=== PATIENT | male | born 1965 | race Caucasian/White ===

== ENCOUNTER 2017-03-23 07:02 | Emergency (ER) | payer BC ==
[2017-03-23 07:24] VITALS: BP 135/84
--- NOTE | 2017-03-23 07:55 | UC ---
Pineda Ann Gabriel, scribed for Christina Medina MD on 03/23/17 at 0719 . Dizzy HPI HPI Summary: This patient is a 51 year old M presenting to [facility] accompanied by his with a chief complaint of dizziness since awakening approx 0600 on 03/21/17 . He describes it as the room being slanted, rather than spinning with general uneasy ambulating. Symptoms seeem aggravated by position change and shifting his vision rapidly. Spouse - unsure if worse or new word finding / confusion. Hx of cva L vert in spring, since then juli when stressed or tired has - as expected - periodic exacerbation of sx. Mr. Levin specifially denies DAVIS, incontinence, palpations, decreased appetit. The patient states he fell once on when trying to get out of bed, no LOC. He reports the dizziness being similar to his last CVA which occurred on 05/12. He is able to read yesterday (stayed home, and mostly in bd) nd follow the plot , denies sleep disturbance. Patient was able to self ambulate into the room upon arrival. Denies recent injury / illness. Nonsmoker (very remote hx). No recent fever / chills, cough / cold. - History Of Current Complaint Stated Complaint: DIZZY Time Seen by Provider: 03/23/17 07:04 Hx Obtained From: Patient, Family/Acting Professor Onset/Duration: Lasting Days - 3, Still Present Timing: Constant Severity Initially: Moderate Severity Currently: Moderate Character: Dizzy - Allergies/Home Medications Allergies/Adverse Reactions: Allergies Allergy/AdvReac Type Severity Reaction Status Date / Time No Known Allergies Allergy Verified 12/28/15 10:25 PMH/Surg Hx/FS Hx/Imm Hx Previously Healthy: No - healthy with exception of hpi Endocrine History: Other - denies dm Other Endocrine History: see above Cardiovascular History: Hypertension Other Cardiovascular History: HLD Respiratory History: Other - sleep apnea, wears nightly cpap Other Respiratory History: see above Neurological History: CVA Other History Of: Anticoagulant Therapy - Aspirin. Negative For: HIV, Hepatitis B, Hepatitis C - Surgical History Surgical History: Yes Surgery Procedure, Year, and Place: ORIF right ankle. [place]; left knee cartilage removed - Family History Known Family History: Positive: Cardiac Disease, Hypertension, Other - CVA - mom dec copd issues - dad dec Negative: Diabetes - Social History Occupation: Employed Full-time Lives: With Family Alcohol Use: Occasionally Substance Use Type: None Substance Use Comment - Amount & Last Used: xanax prn and ativan prn Smoking Status (MU): Never Smoked Tobacco - Immunization History Most Recent Tetanus Shot: 08/30/15 Review of Systems Constitutional: Negative Skin: Negative Eyes: Negative ENT: Other - see hpi Respiratory: Negative Cardiovascular: Negative Gastrointestinal: Negative Genitourinary: Negative Motor: Other - see hpi Neurovascular: Other - see hpi Musculoskeletal: Other: - see hpi Neurological: Other - see hpi Psychological: Negative Is Patient Immunocompromised?: No All Other Systems Reviewed And Are Negative: Yes Physical Exam Triage Information Reviewed: Yes Appearance: Well-Appearing, Well-Nourished Vital Signs: Initial Vital Signs Temp 97.6 F 03/23/17 07:09 Pulse 69 03/23/17 07:09 Resp 18 03/23/17 07:09 BP 135/84 03/23/17 07:09 Pulse Ox 98 03/23/17 07:09 Vital Signs Reviewed: Yes Eyes: Positive: Other: - Slight horizontal nystagmus (r < l) . PERRLA EOMI gross vis camargo ok (1 and 2 finger) ENT Exam: Normal ENT: Positive: Pharynx normal Neck exam: Normal Neck: Positive: Supple, Nontender, Other: - no carotid bruits appreciated. Respiratory Exam: Normal - no dyspnea, no tachypnea, normal respiratory rate, Chest non-tender, Lungs clear, Normal breath sounds, No respiratory distress, No accessory muscle use Respiratory: Positive: Chest non-tender, Lungs clear, Normal breath sounds, No respiratory distress Cardiovascular Exam: Normal - Heart rate regular, good general skin color, good capillary refill, RRR, No Murmur Cardiovascular: Positive: RRR, No Murmur, Pulses Normal, Brisk Capillary Refill Abdominal Exam: Normal - Nontender, No Organomegaly, Soft Abdomen Description: Positive: Nontender Bowel Sounds: Positive: Present Musculoskeletal Exam: Normal Musculoskeletal: Positive: Strength Intact - moves x 4 ext's. Able to stand. See neuro below. Neurological Exam: Normal Neurological: Positive: Other: - CN 1 - 12 grossly intact, incl + CN 1 + sens alcohol swab. No diplopia. DTR's 1-2+ equal P / BR / R Moves all ext's. Distal sens LT present x 4 ext's Denies B/B issues (no leak). Sharpened romberg , right 2 seconds, left 5 seconds, unsteady. Heel to toe forward and back with eyes open, challenging. (max approx 3 ft). Ax N sens Bilt + present. Psychological Exam: Normal - conversing easily and appropriately some word finding difficulty, however, unsure if this is unusual. Skin Exam: Normal, Other - no visible or reported rash Dizzy Course/Dx - Course Course Of Treatment: EKG - NSR at 65 bmp 65bpm. BG 105mg / dl. D/w pt and his . Recommend ED transfer via EMS, understandably he is disappointed, but expressed understanding and agreement. Took 325mg po aspirin late last evening (takes every night), as such, not given this am. Spoke with Dr. London ED, via telephone, 07:28am. EMS notified 07:22am. - Differential Dx/Diagnosis Provider Diagnoses: Dizziness , unsteadiness x approx 49 hrs. Hx L vertebral dissection spring 2013. Discharge - Discharge Plan Condition: Guarded Disposition: TRANS HIGHER LVL OF CARE FAC Referrals: Jared Rabago MD [Primary Care Provider] - The documentation as recorded by the Pineda calzada Gabriel accurately reflects the service I personally performed and the decisions made by me, Christina Medina MD.
== END 2017-03-23 07:48 | disposition short-term general hospital (02) ==
LOC: UCEAST 07:02
DX: R42 Dizziness and giddiness (principal); R26.81 Unsteadiness on feet; I10 Essential (primary) hypertension; E78.5 Hyperlipidemia, unspecified
CPT/HCPCS: 93005; 99213; G0463

== ENCOUNTER 2017-03-23 08:03 | Observation (INO) | payer BC ==
[2017-03-23 08:20] LABS: ABS Basophils 0 10^3/ul (0-0.2); ABS Eosinophils 0.2 10^3/ul (0-0.6); ABS Lymphocytes 1.3 10^3/ul (1.0-4.8); ABS Monocytes 0.4 10^3/ul (0-0.8); ABS Neutrophils 3.7 10^3/ul (1.5-7.7); ABS Nucleated RBC 0 10^3/ul; Eosinophil % 2.8 % (0-6); Hematocrit 43 % (42-52); Hemoglobin 14.4 g/dl (14.0-18.0); Mean Corpuscular HGB Conc 34 g/dl (31-36); Mean Corpuscular Hemoglobin 30 pg (27-31); Mean Corpuscular Volume 89 fL (80-94); Mean Platelet Volume 9 um3 (7.4-10.4); Nucleated Red Blood Cells % 0; Platelet Count 165 10^3/ul (150-450); Red Blood Count 4.81 10^6/ul (4.0-5.4); Red Cell Distribution Width 13 % (10.5-15); White Blood Count 5.7 10^3/ul (3.5-10.8)
[2017-03-23 08:35] LABS: EGFR Non-African American 82.3 (>60)
--- NOTE | 2017-03-23 08:43 | RAD ---
HISTORY: Dizziness COMPARISONS: November 23, 2013 TECHNIQUE: Multiple contiguous axial CT scans were obtained of the head without intravenous contrast. FINDINGS: HEMORRHAGE/INFARCT: There is no hemorrhage or acute infarct. MASSES/SHIFT: There is no mass or shift. EXTRA-AXIAL SPACES: There are no extra-axial fluid collections. SULCI AND VENTRICLES: The sulci and ventricles are normal in size and position for the patient's stated age. CEREBRUM: There are no focal parenchymal abnormalities. BRAINSTEM: There are no focal parenchymal abnormalities. CEREBELLUM: There are no focal parenchymal abnormalities. VESSELS: The vessels are grossly normal. PARANASAL SINUSES: The paranasal sinuses are clear. ORBITS: The orbits are unremarkable. BONES AND SOFT TISSUE: No bone or soft tissue abnormalities are noted. OTHER: None IMPRESSION: NO ACUTE INTRACRANIAL PATHOLOGY.
--- NOTE | 2017-03-23 08:45 | RAD ---
Indication: Dizziness. Comparison: November 23, 2013 chest radiograph and August 24, 2008 CT. Technique: Sitting AP chest 0836 hours. Report: Clear lungs and pleural spaces. Negative for pneumothorax. The heart, pulmonary vasculature, and mediastinal contours are unremarkable. Unremarkable osseous structures and soft tissue contours. IMPRESSION: No evidence for acute intrathoracic disease.
[2017-03-23 08:50] LABS: Urine Appearance Clear; Urine Blood Negative (Negative); Urine Color Colorless; Urine Ketones Negative (Negative); Urine Protein Negative (Negative); Urine Specific Gravity 1.002 (1.010-1.030); Urine Urobilinogen Negative (Negative)
[2017-03-23] MEDS ORDERED: Iohexol 350* (CONTRAST) 500 ML MDV IV ONE (09:16)
--- NOTE | 2017-03-23 10:06 | RAD ---
HISTORY: Dizziness and unsteady gait COMPARISONS: November 23, 2013 TECHNIQUE: Multiple contiguous axial CT scans were obtained of the head and neck After the administration of nonionic intravenous contrast timed to the systemic arterial phase of contrast enhancement. Coronal and sagittal multiplanar reformations are submitted for review. Multiple 3-D maximum intensity projection reconstructions are also submitted for review. FINDINGS: CTA NECK: AORTIC ARCH: There is a normal three-vessel branching pattern of the aortic arch. There is no ostial or proximal stenosis of the cephalic great vessels. RIGHT VERTEBRAL ARTERY: The right vertebral artery is patent along its course, without stenosis. LEFT VERTEBRAL ARTERY: Again noted is multifocal high-grade stenosis of the T1 and proximal V2 segments of the left vertebral artery. This has progressed when compared to the November 23, 2013 examination. There is distal reconstitution of the V2 segment of the left vertebral artery. DOMINANCE: The right vertebral artery is dominant. RIGHT COMMON CAROTID ARTERY: The right common carotid artery is patent. The right carotid bifurcation occurs at C4-C5 RIGHT INTERNAL CAROTID ARTERY: There is no right internal carotid artery stenosis by NASCET criteria. RIGHT EXTERNAL CAROTID ARTERY: The right external carotid artery is unremarkable. LEFT COMMON CAROTID ARTERY: The left common carotid artery is patent. The left carotid bifurcation occurs at C4 LEFT INTERNAL CAROTID ARTERY: There is mild atheromatous disease of the left carotid bifurcation, without left internal carotid artery stenosis by NASCET criteria. LEFT EXTERNAL CAROTID ARTERY: The left external carotid artery is unremarkable. VENOUS CIRCULATION: The venous system is unremarkable. SALIVARY GLANDS: The parotid glands, submandibular glands, sublingual glands are normal. NASAL CAVITY/NASOPHARYNX: The nasal cavity and nasopharynx are normal. ORAL CAVITY/OROPHARYNX: The oral cavity is obscured by streak artifact from dental amalgam. The visualized oral cavity and oropharynx are unremarkable. LARYNGEAL APPARATUS/HYPOPHARYNX: The laryngeal apparatus and hypopharynx are normal. UPPER AIRWAY/UPPER ESOPHAGUS: The visualized upper airway and esophagus are normal. LUNG APICES: The lung apices are clear. THYROID GLAND: The thyroid gland is normal. LYMPH NODES: There is no lymphadenopathy by size criteria. BONES AND SOFT TISSUES: No bone or soft tissue abnormalities are noted. CTA HEAD: INTRACRANIAL CIRCULATION: There is no aneurysm, vascular malformation, occlusion, or stenosis of the visualized intracranial circulation. The anterior communicating artery complex is clear. Bilateral posterior communicating arteries are identified. VENOUS CIRCULATION: The venous system is unremarkable. PERFUSION: There is no obvious parenchymal perfusion deficit. HEMORRHAGE/INFARCT: There is no hemorrhage or acute infarct. MASSES/SHIFT: There is no mass or shift. EXTRA-AXIAL SPACES: There are no extra-axial fluid collections. SULCI AND VENTRICLES: The sulci and ventricles are normal in size and position for the patient's stated age. CEREBRUM: There are no focal parenchymal abnormalities. BRAINSTEM: There are no focal parenchymal abnormalities. CEREBELLUM: There are no focal parenchymal abnormalities. PARANASAL SINUSES: The paranasal sinuses are clear. ORBITS: The orbits are unremarkable. BONES AND SOFT TISSUE: No bone or soft tissue abnormalities are noted. OTHER: There is no abnormal enhancement. IMPRESSION: 1. THERE HAS BEEN INTERVAL PROGRESSION OF THE MULTIFOCAL STENOSIS OF THE PROXIMAL LEFT VERTEBRAL ARTERY. THE DISTAL LEFT VERTEBRAL ARTERY IS RECONSTITUTED PRESUMABLY BY RETROGRADE OR COLLATERAL FLOW. 2. NO INTERNAL CAROTID ARTERY STENOSIS BY NASCET CRITERIA. 3. NO ANEURYSM, VASCULAR MALFORMATION, OCCLUSION, OR STENOSIS OF THE VISUALIZED INTRACRANIAL CIRCULATION. CPT II Codes: 3100F
[2017-03-23] MEDS ORDERED: Albuterol HFA INHALER* 8 gm MDI INH PRN (12:20)
[2017-03-23] MEDS ORDERED: NS 0.9% 500 ML* 500 ML IV ONE (13:59)
--- NOTE | 2017-03-23 15:39 | RAD ---
HISTORY: Stroke, dizziness COMPARISONS: Head CT dated March 23, 2017 TECHNIQUE: The following sequences were obtained of the head: Sagittal T1-weighted images, axial T2-weighted images, axial FLAIR images, axial susceptibility weighted images, axial T1-weighted images. Additionally, axial diffusion-weighted images were obtained with calculated apparent diffusion coefficients. FINDINGS: HEMORRHAGE/INFARCT: There is no hemorrhage or acute infarct. MASSES/SHIFT: There is no mass or shift. EXTRA-AXIAL SPACES/MENINGES: There are no extra-axial fluid collections. SULCI AND VENTRICLES: The sulci and ventricles are normal in size and position for the patient's stated age. CEREBRUM: There are several, scattered small foci of elevated T2/FLAIR signal within the periventricular and subcortical white matter. BRAINSTEM: There are no focal parenchymal abnormalities. CEREBELLUM: There are no focal parenchymal abnormalities. The cerebellar tonsils are normal in size and position. SELLA: The sella is normal. PINEAL: The pineal region is clear. CP ANGLE/TEMPORAL BONES: The labyrinthine structures are grossly normal. VESSELS: Normal flow-voids are noted within the visualized vertebral vasculature. DIFFUSION ABNORMALITIES: There are no diffusion abnormalities. PARANASAL SINUSES/MASTOIDS: The paranasal sinuses are clear. ORBITS: The orbits are unremarkable. BONES AND SOFT TISSUE: No bone or soft tissue abnormalities are noted. OTHER: None IMPRESSION: 1. THERE ARE SEVERAL, SCATTERED, SMALL FOCI OF ELEVATED T2/FLAIR SIGNAL WITHIN THE PERIVENTRICULAR AND SUBCORTICAL WHITE MATTER. WHILE THESE FINDINGS ARE NONSPECIFIC, THEY CAN BE SEEN IN ASSOCIATION WITH MIGRAINE HEADACHE, THE SEQUELA OF PREVIOUS INFECTION OR INFLAMMATION, AND CHRONIC SMALL VESSEL ISCHEMIA. DEMYELINATING DISEASE IS ALSO WITHIN THE DIFFERENTIAL, BUT IS CONSIDERED LESS LIKELY IN THE ABSENCE OF THE APPROPRIATE CLINICAL PRESENTATION. 2. NO RESTRICTED DIFFUSION TO SUGGEST ACUTE INFARCT.
[2017-03-23] MEDS: Acetaminophen TAB* 325 MG PO PRN (17:04)
[2017-03-23] MEDS ORDERED: Atorvastatin* 80 MG TAB PO SCH (21:00)
--- NOTE | 2017-03-23 21:06 | CONS ---
ADDENDUM NOW INCLUDED ON THIS REPORT CONSULTATION REPORT: DATE OF CONSULTATION: 03/23/17 PATIENT OF: Dr. London and Dr. Rabago. HISTORY OF PRESENT ILLNESS: This is a 51-year-old man who has had prior stroke in 2013 and comes in with history of dizziness and altered gait since Wednesday. There has been no worsening today, but he comes in because of persistence of symptoms. Of note, these symptoms are similar to the dizziness he had back in 2013. In 2013, he had a vertebral dissection of his left basilar artery and was on anticoagulation and was treated in [place]. He was left with some right- sided symptoms with slight weakness in his arm and leg. His walking is normal, but he cannot run and if he walks more than a half mile his right leg begins to drag. He has decreased fine motor skills in terms of his handwriting when he gets tired or sick, he will slur his speech from time to time. Now, he has had problems walking any distance. On Wednesday, he initially became lightheaded and fell but he has not fallen since, but he has been more careful. He feels if anything the unsteadiness since Wednesday is perhaps a little bit better, but not appreciably. There has been no visual symptoms, no headache, no weakness, no numbness, it is more of a coordination issue. The patient has hypertension and elevated cholesterol and is on aspirin 325 at home, Lipitor 80 mg at bedtime, Prinivil 5 mg daily. He has no known allergies. He was seen by the neurologist , Dr. Zapata in October 2013 and the note describes possible right-sided weakness and he had had a recent left vertebral dissection at that point. He has had some right-sided numbness at that point with some speech problems. He was thought not to have a new stroke by the doctor and apparently no change in therapy at that point. He has also a history of asthma and obstructive sleep apnea in addition to his hypertension and dyslipidemia. ALLERGIES: He has no known allergies. SOCIAL HISTORY: He does not smoke or drink and of note both parents have had stroke. REVIEW OF SYSTEMS: Negative in all 14 spheres other than the HPI. PHYSICAL EXAMINATION: On exam, temperature is 98.3, pulse 65, respirations 15, blood pressure 124/84, he was alert and oriented with normal speech and comprehension. Cranial nerves II through XII are intact. I did not detect any nystagmus. He has minor past pointing in both right and left hands. Apparently , this is subtle and apparently it is only his left hand in the past, he has a negative pronator drift. Strength was 5/5 in arms and legs, tone was normal. Walking, he tended to lock his left knee and had some inclination in his right side, his walking was somewhat unsteady and he needed one person assist to help steady himself. His Romberg was negative. His walking was a clear-cut change from prior to Wednesday. He had no numbness to light touch or pin. Reflexes were 2 and equal. Downgoing toes. Neck was supple. Chest clear. Cardiovascular: Regular rate and rhythm. Abdomen: Soft with positive bowel sounds. DIAGNOSTIC STUDIES/LAB DATA: His CT was reviewed and was normal. His CTA was reviewed and did show left vertebral disease and was thought by Dr. Medina to have an interval progression from his multifocal stenosis of his proximal left vertebral artery with the distal left vertebral artery reconstituted presumably by retrograde collateral flow. His prior CTA in October 2013 done locally, which was that of his first CTA showed a diminutive right vertebrobasilar and occluded proximal segment of his left vertebrobasilar to include normal CBC. Chemistries show normal CMP, BMP, C-reactive protein. Glucose is 102. His LDL not fasting was 83. TSH 2.8. Negative UA. Negative alcohol. 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 We will be checking an MRI scan and I most likely will be increasing his antithrombotics to aspirin and Plavix. His blood pressure is normal, but he possibly could be a little bit dehydrated and having the ER doctor give a small bolus of fluid. He was a little bit lightheaded, but he stood up in addition to feeling mild room spinning. I am concerned given his progressive vertebrobasilar disease and his basilar symptoms, basilar insufficiency that he is at risk for major posterior circulation stroke. I think especially since he has been stable for the past few days' time, they will not want to do any endovascular intervention and that we would most likely not place an anticoagulation, but I will double check these things with him. Thank you for sharing his case. ADDENDUM: I spoke to Dr. Crouch from [place] who reviewed the CTA and CT and was not sure whether there would be any use for a digital subtraction angiography within the next day or two and wanted me to speak to the vascular neurosurgeon, I did. He also reviewed the CTA and CT and discussed the case with him and I told him the results of the MRI scan which has just been completed, but it had not been yet loaded on to their system. He felt that the patient needed a digital subtraction angiography for better clarification of the vascular anatomy , but there would be no acute interventional procedures needed in the near future and that the DSA could be done as an outpatient basis either at [place] or at [place]. The patient is being admitted for observation at this point. I have spoken to Dr. Regalado. I discussed the case with the family after I spoke to Dr. Crouch, but before I spoke to Dr. Faye. [id number] #: [id number] #: [id number] BATSHEVA
--- NOTE | 2017-03-23 21:48 | HP ---
CC: Dr. Rabago; Dr. Duvall; Dr. Simpson from [facility] in [place], [place] * HISTORY AND PHYSICAL: DATE OF ADMISSION: 03/23/17 PRIMARY CARE PROVIDER: Dr. Rabago. CHIEF COMPLAINT: Dizziness. 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 The patient stated that 3 days ago, he got up from bed and his gait was so unsteady that he fell down. Ever since then, he had been getting better and he is able to walk without major need of support for the past 24 hours. Nevertheless, due to his history of stroke, his brought him to the hospital for evaluation. So far, his workup is unremarkable apart from mild ataxia. The patient is going to be placed on overnight observation with a working diagnosis of ischemic CVA. PAST MEDICAL HISTORY: 1. History of asthma. 2. Dyslipidemia. 3. History of hypertension. 4. History of ORIF of the right ankle. 5. History of posterior circulation CVA in 2013 for which the patient was evaluated in the hospital in [place]. He stated that he had left vertebral artery dissection for which he was anticoagulated with Coumadin for several months afterwards. CURRENT MEDICATIONS: Includes: 1. Lisinopril 5 mg daily. 2. Atorvastatin 80 mg daily. 3. Aspirin 325 mg daily. 4. Albuterol inhaler on a p.r.n. basis. ALLERGIES: No known drug allergies. FAMILY HISTORY: Positive for father, who secondary to COPD complications in his 70s. Mother of secondary to stroke at the age of 46. SOCIAL HISTORY: The patient denies any tobacco, alcohol, or drug use. 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 He lives with his , who is his surrogate. REVIEW OF SYSTEMS: Please see history of present illness. In addition to the above mentioned, the patient stated he did not have headache, but he has had occasional neck pain which is not unusual for him. He denies any diplopia. He states that his dizziness, he feels like he would be on "a ship." It is definitely worse when he is moving. He has not had any problems of nausea and vomiting with it. All the remaining 12 systems were reviewed with the patient and were otherwise negative. PHYSICAL EXAMINATION GENERAL: The patient is a very pleasant 51-year-old male, who is in no acute distress. Alert, awake, and oriented x3. VITAL SIGNS: Blood pressure of 137/85, heart rate of 61 and regular, respiratory rate 16, oxygen saturation 97% on room air, temperature 97.6. HEENT: Head: Atraumatic, normocephalic. Eyes: Pupils are equal, reactive to light and accommodation. Oropharynx clear. Mucosa moist. NECK: Supple. No JVD. No bruits bilaterally. RESPIRATORY: Clear to auscultation bilaterally. CARDIOVASCULAR: Regular rate and rhythm. No murmur. ABDOMEN: Soft, nontender. Bowel sounds are present in all 4 quadrants. EXTREMITIES: There is no edema. Pulses are +2 bilaterally. No clubbing, cyanosis. NEUROLOGIC: Speech clear. Cranial nerves II through XII grossly intact. Motor strength is 5/5 bilaterally. The patient's [id number] is not dysmetric. Heel- to-alvarez is not dysmetric. The patient's gait is wide and unsteady. He has negative Romberg. PSYCHIATRIC EVALUATION: Oriented x3 with no evidence of anxiety or depression. SKIN: On evaluation of the skin, no ecchymotic areas or rashes noted. DIAGNOSTIC STUDIES/LAB DATA: Showed white blood cell count of 5.7, hemoglobin 14.4, hematocrit 43, and platelets 165. Sodium 136, potassium 4.4, chloride 105 , carbon dioxide 25, BUN 15, creatinine 0.96. C-reactive protein was below 1. Brain natriuretic peptide was 73. Urinalysis was unremarkable. CT angiogram of the head and neck, impression: "There has been interval progression of the multifocal stenosis of the proximal left vertebral artery. The distal left vertebral artery reconstituted presumably by retrograde all collateral flow. No interval carotid artery stenosis. No evidence of vascular malformation, occlusion or stenosis of the visualized intracranial circulation. " Chest x-ray was unremarkable. Brain CT showed, "no acute intracranial pathology." The patient's EKG showed normal sinus rhythm with a heart rate of 64 beats per minute with no ST changes. From review of medical records, the patient had a bubble study and echocardiogram performed in 2008, which was negative for PFO. ASSESSMENT AND PLAN: 1. In regards to the patient's dizziness. At this point, the differential includes posterior circulation stroke versus vertigo related more to inner ear pathology. At this point, the patient is going to be placed on overnight observation with neuro checks every 2 hours. Neurology network security consultant, Dr. Duvall will see the patient. An MRI was already recommended. I will also obtain transthoracic echocardiogram, although no need to get another bubble study since the patient's echocardiogram was negative several years ago. 2. Due to systolic blood pressures in the 130s, I will hold the patient's lisinopril to optimize his blood pressure. 2. In regards to the patient's dyslipidemia, his Lipitor is going to be continued. 3. For DVT prophylaxis, the patient is low risk and ambulation is going to be encouraged. TIME SPENT: Approximately 65 minutes was spent on admission of this patient, more than half of that time was spent [id number] with the patient doing the interview and physical exam. [id number] #: [id number] BATSHEVA
--- NOTE | 2017-03-23 21:56 | CONS ---
NEUROLOGICAL CONSULTATION: ADDENDUM: I spoke to Dr. Crouch from [place] who reviewed the CTA and CT and was not sure whether there would be any use for a digital subtraction angiography within the next day or two and wanted me to speak to the vascular neurosurgeon, I did. He also reviewed the CTA and CT and discussed the case with him and I told him the results of the MRI scan which has just been completed, but it had not been yet loaded on to their system. He felt that the patient needed a digital subtraction angiography for better clarification of the vascular anatomy, but there would be no acute interventional procedures needed in the near future and that the DSA could be done as an outpatient basis either at [place] or at [facility]. The patient is being admitted for observation at this point. I have spoken to Dr. Regalado. I discussed the case with the family after I spoke to Dr. Crouch, but before I spoke to . [id number] #: [id number] BATSHEVA
[2017-03-24] MEDS: Acetaminophen TAB* 325 MG PO PRN (07:42)
--- NOTE | 2017-03-24 07:58 | ED ---
Esdras Ann Angela, scribed for James London MD on 03/23/17 at 0844 . Neurological HPI - HPI Summary HPI Summary: This pt is a 51 y/o male presenting to [facility] c/o dizziness since 2 days ago ( 03/21/17). Pt describes his dizziness feels "like a head morales" and feeling of passing out, but not spinning. Pt has a history of left vertebral artery CVA in 2013, where he also felt dizzy. Pt was on anticoagulants for 3 months after his CVA, and then began to take aspirin everyday. Pt takes aspirin every evening, he last took one yesterday evening. He currently denies nausea, vomiting. PMHx: asthma, HTN, high cholesterol. - History of Current Complaint Chief Complaint: EDDizziness Stated Complaint: DIZZINESS Hx Obtained From: Patient Onset/Duration: Started days ago, Still Present Timing: Constant Current Severity: Moderate Pain Intensity: 3 Pain Scale Used: 0-10 Numeric Character: Lightheaded, Dizzy Aggravating: Nothing Alleviating: Nothing Associated Signs and Symptoms: Positive: Dizziness - Allergy/Home Medications Allergies/Adverse Reactions: Allergies Allergy/AdvReac Type Severity Reaction Status Date / Time No Known Allergies Allergy Verified 12/28/15 10:25 Home Medications: Home Medications Albuterol HFA INHALER* [Ventolin HFA Inhaler*] 2 puff INH Q4H PRN 03/23/17 [ History Confirmed 03/23/17] Lisinopril TAB* [Prinivil TAB*] 5 mg PO DAILY 03/23/17 [History Confirmed ] PMH/Surg Hx/FS Hx/Imm Hx Endocrine/Hematology History: Reports: Hx Anticoagulant Therapy - Aspirin. Denies: Hx Diabetes, Hx Thyroid Disease Cardiovascular History: Reports: Hx Hypertension Denies: Hx Congestive Heart Failure, Hx Deep Vein Thrombosis, Hx Myocardial Infarction, Hx Pacemaker/ICD Respiratory History: Reports: Hx Asthma Denies: Hx Chronic Obstructive Pulmonary Disease (COPD), Hx Lung Cancer, Hx Pneumonia, Hx Pulmonary Embolism GI History: Denies: Hx Gall Bladder Disease, Hx Gastrointestinal Bleed, Hx Ulcer, Hx Urosepsis History: Denies: Hx Kidney Stones, Hx Renal Disease Neurological History: Denies: Hx Dementia, Hx Migraine, Hx Seizures, Hx Transient Ischemic Attacks (TIA) Psychiatric History: Denies: Hx Anxiety, Hx Depression, Hx Schizophrenia, Hx Bipolar Disorder - Surgical History Surgery Procedure, Year, and Place: ORIF right ankle. [place]; left knee cartilage removed Infectious Disease History: No Infectious Disease History: Denies: Hx Clostridium Difficile, Hx Hepatitis, Hx Human Immunodeficiency Virus (HIV), Hx of Known/Suspected MRSA, Hx Shingles, Hx Tuberculosis, Hx Known/ Suspected VRE, Hx Known/Suspected VRSA, History Other Infectious Disease, Traveled Outside the [place] in Last 30 Days - Family History Known Family History: Positive: Cardiac Disease, Hypertension, Other - CVA - mom dec copd issues - dad dec Negative: Diabetes Family History: Mother: hemorrhagic CVA - Social History Alcohol Use: Occasionally Substance Use Type: Reports: None Substance Use Comment - Amount & Last Used: xanax prn and ativan prn Smoking Status (MU): Never Smoked Tobacco Review of Systems Negative: Fever, Chills Negative: Vomiting, Nausea Neurological: Other - POS: dizziness All Other Systems Reviewed And Are Negative: Yes Physical Exam - Summary Physical Exam Summary: VITAL SIGNS: Reviewed. GENERAL: Patient is a well-developed and nourished male who is lying comfortable in the stretcher. Patient is not in any acute respiratory distress. HEAD AND FACE: No signs of trauma. No ecchymosis, hematomas or skull depressions. No sinus tenderness. EYES: PERRLA, EOMI x 2, No injected conjunctiva, no nystagmus. No photophobia. EARS: Hearing grossly intact. Ear canals and tympanic membranes are within normal limits. MOUTH: Oropharynx within normal limits. NECK: Supple, trachea is midline, no adenopathy, no JVD, no carotid bruit, no c- spine tenderness, neck with full ROM. No meningeal signs, no Kernig's or brudzinskis signs. CHEST: Symmetric, no tenderness at palpation LUNGS: Clear to auscultation bilaterally. No wheezing or crackles. CVS: Regular rate and rhythm, S1 and S2 present, no murmurs or gallops appreciated. ABDOMEN: Soft, non-tender. No signs of distention. No rebound no guarding, and no masses palpated. Bowel sounds are normal. EXTREMITIES: FROM in all major joints, no edema, no cyanosis or clubbing. NEURO: Alert and oriented x 3. No acute neurological deficits. Speech is normal and follows commands. SKIN: Dry and warm GCS: 15 Triage Information Reviewed: Yes Vital Signs On Initial Exam: Initial Vitals Temp Pulse Resp BP Pulse Ox 98.3 F 72 16 156/91 97 03/23/17 08:09 03/23/17 08:09 03/23/17 08:09 03/23/17 08:09 03/23/17 08:09 Vital Signs Reviewed: Yes Diagnostics - Vital Signs Vital Signs Temp Pulse Resp BP Pulse Ox 03/23/17 08:09 98.3 F 72 16 156/91 97 - Laboratory Lab Results: Lab Results 03/23/17 03/23/17 03/23/17 Range/Units 07:36 07:36 07:36 WBC 5.7 (3.5-10.8) 10^3/ul RBC 4.81 (4.0-5.4) 10^6/ul Hgb 14.4 (14.0-18.0) g/dl Hct 43 (42-52) % MCV 89 (80-94) fL MCH 30 (27-31) pg MCHC 34 (31-36) g/dl RDW 13 (10.5-15) % Plt Count 165 (150-450) 10^3/ul MPV 9 (7.4-10.4) um3 Neut % (Auto) 65.9 (38-83) % Lymph % (Auto) 23.0 L (25-47) % [place] % (Auto) 7.6 (1-9) % Eos % (Auto) 2.8 (0-6) % Baso % (Auto) 0.7 (0-2) % Absolute Neuts (auto) 3.7 (1.5-7.7) 10^3/ul Absolute Lymphs (auto) 1.3 (1.0-4.8) 10^3/ul Absolute Monos (auto) 0.4 (0-0.8) 10^3/ul Absolute Eos (auto) 0.2 (0-0.6) 10^3/ul Absolute Basos (auto) 0 (0-0.2) 10^3/ul Absolute Nucleated RBC 0 10^3/ul Nucleated RBC % 0 Sodium 136 (133-145) mmol/L Potassium 4.4 (3.5-5.0) mmol/L Chloride 105 (101-111) mmol/L Carbon Dioxide 25 (22-32) mmol/L Anion Gap 6 (2-11) mmol/L BUN 16 (6-24) mg/dL Creatinine 0.96 (0.67-1.17) mg/dL Est GFR ( Amer) 105.8 (>60) Est GFR (Non-Af Amer) 82.3 (>60) BUN/Creatinine Ratio 16.7 (8-20) Glucose 102 H (70-100) mg/dL Calcium 9.5 (8.6-10.3) mg/dL Magnesium 2.1 (1.9-2.7) mg/dL Total Bilirubin 0.40 (0.2-1.0) mg/dL AST 19 (13-39) U/L ALT 18 (7-52) U/L Alkaline Phosphatase 70 (34-104) U/L Troponin I 0.00 (<0.04) ng/mL C-Reactive Protein < 1.00 (< 5.00) mg/L B-Natriuretic Peptide 73 ( - 100) pg/mL Total Protein 6.7 (6.4-8.9) g/dL Albumin 4.3 (3.2-5.2) g/dL Globulin 2.4 (2-4) g/dL Albumin/Globulin Ratio 1.8 (1-3) Triglycerides 103 mg/dL Cholesterol 133 mg/dL LDL Cholesterol 83 mg/dL HDL Cholesterol 29.3 mg/dL TSH 2.80 (0.34-5.60) mcIU/mL Urine Color Urine Appearance Urine pH (5-9) Ur Specific [place] (1.010-1.030) Urine Protein (Negative) Urine Ketones (Negative) Urine Blood (Negative) Urine Nitrate (Negative) Urine Bilirubin (Negative) Urine Urobilinogen (Negative) Ur Leukocyte Esterase (Negative) Urine Glucose (Negative) Serum Alcohol < 10 (<10) mg/dL 03/23/17 Range/Units 08:07 WBC (3.5-10.8) 10^3/ul RBC (4.0-5.4) 10^6/ul Hgb (14.0-18.0) g/dl Hct (42-52) % MCV (80-94) fL MCH (27-31) pg MCHC (31-36) g/dl RDW (10.5-15) % Plt Count (150-450) 10^3/ul MPV (7.4-10.4) um3 Neut % (Auto) (38-83) % Lymph % (Auto) (25-47) % [place] % (Auto) (1-9) % Eos % (Auto) (0-6) % Baso % (Auto) (0-2) % Absolute Neuts (auto) (1.5-7.7) 10^3/ul Absolute Lymphs (auto) (1.0-4.8) 10^3/ul Absolute Monos (auto) (0-0.8) 10^3/ul Absolute Eos (auto) (0-0.6) 10^3/ul Absolute Basos (auto) (0-0.2) 10^3/ul Absolute Nucleated RBC 10^3/ul Nucleated RBC % Sodium (133-145) mmol/L Potassium (3.5-5.0) mmol/L Chloride (101-111) mmol/L Carbon Dioxide (22-32) mmol/L Anion Gap (2-11) mmol/L BUN (6-24) mg/dL Creatinine (0.67-1.17) mg/dL Est GFR ( Amer) (>60) Est GFR (Non-Af Amer) (>60) BUN/Creatinine Ratio (8-20) Glucose (70-100) mg/dL Calcium (8.6-10.3) mg/dL Magnesium (1.9-2.7) mg/dL Total Bilirubin (0.2-1.0) mg/dL AST (13-39) U/L ALT (7-52) U/L Alkaline Phosphatase (34-104) U/L Troponin I (<0.04) ng/mL C-Reactive Protein (< 5.00) mg/L B-Natriuretic Peptide ( - 100) pg/mL Total Protein (6.4-8.9) g/dL Albumin (3.2-5.2) g/dL Globulin (2-4) g/dL Albumin/Globulin Ratio (1-3) Triglycerides mg/dL Cholesterol mg/dL LDL Cholesterol mg/dL HDL Cholesterol mg/dL TSH (0.34-5.60) mcIU/mL Urine Color Colorless Urine Appearance Clear Urine pH 6.0 (5-9) Ur Specific [place] 1.002 L (1.010-1.030) Urine Protein Negative (Negative) Urine Ketones Negative (Negative) Urine Blood Negative (Negative) Urine Nitrate Negative (Negative) Urine Bilirubin Negative (Negative) Urine Urobilinogen Negative (Negative) Ur Leukocyte Esterase Negative (Negative) Urine Glucose Negative (Negative) Serum Alcohol (<10) mg/dL Result Diagrams: 03/23/17 07:36 03/23/17 07:36 Lab Statement: Any lab studies that have been ordered have been reviewed, and results considered in the medical decision making process. - Radiology Chest XR Xray Interpretation: No Acute Changes - IMPRESSION: No evidence for acute intrathoracic disease. Dr. London has reviewed this radiology report. Radiology Interpretation Completed By: Radiologist - CT Brain CT CT Interpretation: No Acute Changes - IMPRESSION: No acute intracranial pathology. Dr. London has reviewed this radiology report. CT Interpretation Completed By: Radiologist CTA head/neck CT Interpretation: Positive (See Comments) - IMPRESSION: 1. There has been interval progression of the multifocal stenosis of the proximal left vertebral artery. The distal left vertebral artery is reconstituted presumably by retrograde or collateral flow. 2. No internal carotid artery stenosis by nascet criteria. 3. No aneurysm, vascular malformation, occlusion, or stenosis of the visualized intracranial circulation. Dr. London has reviewed this radiology report. CT Interpretation Completed By: Radiologist - EKG 08:12 Cardiac Rate: NL EKG Rhythm: Sinus Rhythm - at 64 bpm EKG Interpretation: No STEMI EKG Comparison: No Significant Change - similar to prior EKG on 11/23/13. NIH Scale - NIH Scale Level of Consciousness: Alert/Keenly Responsive Ask Patient the Month and His/Her Age: Both Correct Ask Pt to Open/Close Eyes and Junior Sales Assistant/Release Non-Paretic Hand: Both Correctly Best Gaze (Only Horizontal Eye Movement): Normal Visual Field Testing: No Visual Loss Facial Paresis-Pt to Smile & Close Eyes or Grimace Symmetry: Normal/Symmetrical Motor Function - Right Arm: No Drift-Holds 10 Seconds Motor Function - Left Arm: No Drift-Holds 10 Seconds Motor Function - Right Leg: No Drift-Holds 10 Seconds Motor Function - Left Leg: No Drift-Holds 10 Seconds Limb Ataxia-Must be out of Proportion to Weakness Present: Absent Sensory (Use Pinprick to Test Arms/Legs/Trunk/Face): Normal Best Language (Describe Picture, Name Items): No Aphasia Dysarthria (Read Several Words): Normal Extinction and Inattention: No Abnormality Total Score: 0 Course/Dx - Course Course Of Treatment: This pt is a 51 y/o male presenting to [facility] c/o dizziness since 2 days ago (03/21/17). Pt describes his dizziness feels "like a head morales" and feeling of passing out, but not spinning. Pt has a history of left vertebral artery CVA in 2013, where he also felt dizzy. Pt was on anticoagulants for 3 months after his CVA, and then began to take aspirin everyday. Pt takes aspirin every evening, he last took one yesterday evening. He currently denies nausea, vomiting. PMHx: asthma, HTN, high cholesterol. Test results without any significant abnormalities. Head CT shows no acute intracranial pathology. At this point I discussed the case with Dr. Duvall, neurologist, who requested a CTA. CTA head/neck shows 1. There has been interval progression of the multifocal stenosis of the proximal left vertebral artery. The distal left vertebral artery is reconstituted presumably by retrograde or collateral flow. 2. No internal carotid artery stenosis by nascet criteria. 3. No aneurysm, vascular malformation, occlusion, or stenosis of the visualized intracranial circulation. After the results, he requested the pt to be admitted to the hospitalist and get a MRI. Therefore, I discussed the pts case with Dr. Regalado, hospitalist, who accepted the pt for admission. - Differential Dx Differential Diagnoses Neuro: Positive: Carbon Monoxide Poisoning, Cerebrovascular Accident, Seizure Disorder, Transient Ischemic Attack, Vasovagal Reaction - Diagnoses Provider Diagnoses: Ischemic cerebrovascular accident (CVA) - Physician Notifications Discussed Care Of Patient With: Gera Duvall Time Discussed With Above Provider: 09:07 Instructed by Provider To: Other - I discussed pt care with Dr. Duvall, neurologist, who requests to order a CTA head/neck. [10:30] I spoke with Dr. Regalado, hospitalist, who has agreed to admit the pt. - Critical Care Time Critical Care Time: 75-104 min Discharge - Discharge Plan Condition: Stable Disposition: ADMITTED TO [facility] The documentation as recorded by the Esdras calzada Angela accurately reflects the service I personally performed and the decisions made by me, James London MD.
[2017-03-24] MEDS ORDERED: Aspirin EC TAB* 325 MG PO SCH (09:00)
[2017-03-24] MEDS ORDERED: Lisinopril TAB* 5 MG PO SCH (09:00)
[2017-03-24] MEDS ORDERED: Meclizine TAB* 12.5 MG PO ONE (10:26)
[2017-03-24] MEDS ORDERED: Clopidogrel TAB* 75 MG PO SCH (11:00)
--- NOTE | 2017-03-24 11:06 | ECHO ---
Patient: MARY MICHAEL [facility] Rec#: [id number] : 1965 Date: 03/24/2017 Age: 51y Height: 172.72 cm / 68.0 in Weight: 81.65 kg / 180.0 lbs Sex: M BSA: 1.95 Room#: [facility] Admit Date#: 03/23/2017 Type: Inpatient Referring: Jamila Regalado MD Reading: Delmi Hayden MD Donor Recruiter: Corine Laureano RDCS CC: Jared Rabago MD Transthoracic Echocardiogram Indication: CVA// dizziness BP: 123/77 HR: 63 Rhythm: Tachycardia Findings History: YUSRA,HTN,HLD,prior CVA,asthma. Technical Comments: The study quality is good. Completed at 1001. Left Ventricle: The left ventricular chamber size is normal. Posterior wall hypertrophy is observed. Global left ventricular wall motion and contractility are within normal limits. There is normal left ventricular systolic function. The estimated ejection fraction is 55-60%. Normal left ventricular diastolic filling is observed. Left Atrium: The left atrial chamber size is normal. Right Ventricle: The right ventricular cavity size is normal. The right ventricular global systolic function is normal. Right Atrium: The right atrial cavity size is normal. Aortic Valve: The aortic valve is trileaflet. There is no evidence of aortic valve thickening. There is no evidence of aortic regurgitation. There is no evidence of aortic stenosis. Mitral Valve: The mitral valve leaflets are mildly thickened. There is a trace of mitral regurgitation. There is no evidence of mitral stenosis. Tricuspid Valve: The tricuspid valve leaflets are normal. There is no evidence of tricuspid valve regurgitation. There is no tricuspid stenosis. Pulmonic Valve: The pulmonic valve appears normal. There is no evidence of pulmonic regurgitation. There is no pulmonic stenosis. Pericardium: The pericardium appears normal. Aorta: There is no dilatation of the ascending aorta. There is no dilatation of the aortic arch. There is no dilation of the aortic root. Pulmonary Artery: The main pulmonary artery appears normal. Venous: The inferior vena cava is dilated. There is a greater than 50% respiratory change in the inferior vena cava dimension. Conclusions The left ventricular chamber size is normal with mild osterior wall hypertrophy. Global left ventricular wall motion and contractility are within normal limits. The estimated ejection fraction is 55-60%. The right ventricular global systolic function is normal. Atria are normal in size, no evidence of intracardiac shunting based on color Doppler (no bubble study done as prior bubble study negative on [facility]). All valves appear structurally normal with normal function. There is a trace of mitral regurgitation. Compared with [place] (transesophogeal echo) of 09/12/08, no significant change. Measurements Name Value Normal Range RVIDd (AP) 2D 2.7 cm (0.9 - 2.6) RVDdMajor (2D) 4 cm (2.2 - 4.4) RAd ISD 4CH 5.1 cm (3.4 - 4.9) RA (A4C)W 4.3 cm (2.9 - 4.6) IVSd (2D) 0.8 cm (0.6 - 1) LVPWd (2D) 1.2 cm (0.6 - 1) LVIDd (2D) 4.4 cm (3.6 - 5.4) LVIDs (2D) 2.9 cm - LV FS (2D) 34 % (25 - 45) Aortic Annulus 1.9 cm (1.4 - 2.6) Ao root diameter (2D) 3.1 cm (2.1 - 3.5) Ascending Ao 3.3 cm (2.1 - 3.4) Aortic arch 2.6 cm (1.8 - 3.4) Descending Ao 0.8 cm - LA dimension (AP) 2D 3.3 cm (2.3 - 3.8) LAd ISD 4CH 5.4 cm (2.9 - 5.3) LA ISD 4CH W 3.7 cm (2.5 - 4.5) Name Value Normal Range LA ESV SP 4CH (A/L) 76 ml - LA ESV SP 2CH (A/L) 57 ml - LA ESV BP (A/L) 66 ml - LA ESV BP (A/L) index 33.9 ml/m2 - LA ESV SP 4CH (MOD) 67 ml - LA ESV SP 2CH (MOD) 54 ml - Name Value Normal Range MV E-wave Vmax 0.7 m/sec - MV deceleration time 208 msec - MV A-wave Vmax 0.8 m/sec - MV E:A ratio 0.85 ratio - LV septal e' Vmax 0.11 m/sec - LV lateral e' Vmax 0.13 m/sec - LV E:e' septal ratio 6.36 ratio - LV E:e' lateral ratio 5.38 ratio - Name Value Normal Range AV Vmax 1.5 m/sec - AV VTI 32.5 cm - AV peak gradient 9.33 mmHg - AV mean gradient 5.45 mmHg - LVOT Vmax 1.4 m/sec - LVOT VTI 29.6 cm - LVOT peak gradient 7.57 mmHg - LVOT mean gradient 3.06 mmHg - Name Value Normal Range IVC diameter 2.2 cm - Name Value Normal Range PV Vmax 1 m/sec - PV peak gradient 4.32 mmHg -
[2017-03-24 11:12] VITALS: BP 133/78
--- NOTE | 2017-03-25 02:09 | DS ---
CC: Dr. Duvall; Dr. Simpson from [facility], [place], [place]; Dr. Rabago * DISCHARGE SUMMARY: DATE OF ADMISSION: 03/23/17 DATE OF DISCHARGE: 03/24/17 PRIMARY CARE PROVIDER: Dr. Rabago. DISCHARGE DIAGNOSIS: Vertigo of further undetermined etiology, was negative for acute stroke, MRI of the brain obtained during the hospital stay. SECONDARY DIAGNOSES: 1. 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 That occurred in 2013 in [facility]. 2. History of ORIF of the right ankle. 3. History of hypertension. 4. Dyslipidemia. 5. History of asthma. MEDICATIONS AT DISCHARGE: Include: 1. Lisinopril 5 mg daily. 2. Atorvastatin 80 mg daily. 3. Aspirin 325 mg daily. 4. Albuterol inhaler on p.r.n. basis. 5. Plavix 75 mg daily that was started at discharge. DIAGNOSTIC STUDIES/LABORATORY DATA: Studies performed during the hospital stay include: Stress echocardiogram obtained on 03/23/17 show EF of 55% to 60% with global left ventricular wall motion and contractility within normal limits. There was no evidence of intracardiac shunting based on the color Doppler. No bubble study was done since bubble study was negative on IRINA in 2008. There was trace mitral regurgitation. There was no change comparing from echo from 2008. Head CTA on 03/23/17, impression: "There has been interval progression of the multifocal stenosis of the proximal left ventricular artery." The distal left ventricular artery is reconstituted presumably by retrograde or collateral flow. No internal carotid artery stenosis. No aneurysm, vascular malformation, occlusion or stenosis of the visualized intracranial circulation." Brain MRI, impression: "There are several scattered small foci, elevated T2 FLAIR signal within the periventricular and subcortical white matter. While these findings are not specific, they can be seen in patients with migraine headaches as the sequelae of previous infection or inflammation and chronic small vessel ischemia. Demyelinating disease is also within the differential, but is considered less likely in the absence of the appropriate clinical presentation. No restricted diffusion to suggest acute infarcts." The patient's laboratory data showed cholesterol total of 133, LDL 83, HDL 29. The patient's TSH was noted to be at 2.8. CONSULTATIONS DURING HOSPITAL STAY: Dr. Duvall from Neurology. HOSPITALIZATION COURSE: Daniel Levin is a 51-year-old male with history of posterior circulation stroke in 2014 due to what the patient mentioned was dissection of the left vertebral artery. He stated that after that, he occasionally gets "clumsy" on the right hand. He is right hand dominant. He stated that 3 days prior to his presentation in the emergency department, he noted to have bilateral lower extremity unsteadiness and weakness. He fell and was trying to get out of bed. Since then, he had been feeling "dizzy." He meant by dizzy as unsteady on his feet and feeling as he was on a ship. That had been improving over the course of days. Nevertheless, they came in for evaluation into the ED on 03/23/17. At that point, he already was able to ambulate without any support, he had wide and rather unsteady gait. Dr. Duvall saw the patient in Neurology consultation and recommended MRI of the brain and a stroke workup. The patient was observed in telemetry monitored bed with no evidence of arrhythmias noted. His last echocardiogram was unremarkable and he had another bubble study obtained back in 2008. The patient continued to feel dizzy and lightheaded whenever he would change position by the time of discharge. His orthostatic blood pressures were checked and the patient had no orthostatic hypotension. He was evaluated by Physical Therapy and outpatient physical therapy was recommended, but he was deemed to be stable enough to walk without any support by the time of discharge. At this point after discussion with Dr. Duvall, we do not know the exact etiology of the patient's vertigo. Dr. Duvall recommended for the patient to see Dr. Simpson from [facility] for further evaluation of vertebral artery stenosis on the left that was seen on the CT angiogram of the head and neck performed during this hospital stay and appeared to be slightly progressed from a CT angiogram in 2013. Also due to that, Dr. Duvall recommended for the patient to be started on Plavix. PHYSICAL EXAMINATION: At the time of discharge, blood pressure 133/78, heart rate of 79 and regular, respiratory rate of 16, O2 saturation 98% on room air, temperature 97.0. General: The patient is a very pleasant 51-year-old male who is in no acute distress. Alert, awake, and oriented x3. HEENT: Head: Atraumatic, normocephalic. Eyes: Pupils are equal, reactive to light and accommodation. Oropharynx is clear. Mucosa moist. Neck: Supple. No JVD. No bruits bilaterally. Cardiovascular: Regular rate and rhythm. No murmur. Respiratory: Clear to auscultation bilaterally. Abdomen: Soft, nontender. Bowel sounds are present in all 4 quadrants. Lower extremities: There is no edema. Pulses are +2 bilaterally. There is no clubbing or cyanosis. Neuro Evaluation: Speech clear. Cranial nerves II through XII grossly intact. Motor strength is 5/5 bilaterally. The patient's pgbcom-[id number] is nondysmetric. His Romberg is negative. He has a rather wide and unsteady gait and he is unable to do a tandem walk. His heel-to- alvarez is unremarkable bilaterally. He appears to have mild nystagmus on extreme right gaze. The patient's case was discussed with patient's neurologist from [facility], Dr. Simpson, who has an appointment scheduled for the patient on 04/20/17 for followup and who agreed with continuation of aspirin and Plavix for the time being. The patient also was prescribed physical therapy evaluation as outpatient. Please note that this is a short summary of the patient's hospital evaluation. Please refer to further medical records for details. TIME SPENT: Approximately 35 minutes was spent on the patient's discharge. [id number]/[facility] #: [id number] BATSHEVA
== END 2017-03-24 15:13 | disposition home or self-care (01) ==
LOC: ED 08:03 → MEDTELE 11:40
PROVIDERS: ADMIT Internal Medicine; ATTEND Internal Medicine
DX: R42 Dizziness and giddiness (principal); Z87.09 Personal history of other diseases of the respiratory system; E78.5 Hyperlipidemia, unspecified; Z86.79 Personal history of other diseases of the circulatory system; Z79.82 Long term (current) use of aspirin
CPT/HCPCS: 36415; 70450; 70496; 70498; 70551; 71045; 80053; 80061; 80320; 81003; 83735; 83880; 84443; 84484; 85025; 86140; 93005; 93306; 99284; A9270-GY; G0378; G0480; G8978-GP-CH; G8979-GP-CH; G8980-GP-CH; Q9967

== ENCOUNTER 2018-06-28 07:00 | Emergency (ER) | payer BC ==
[2018-06-28 07:18] VITALS: BP 135/85
--- NOTE | 2018-06-28 07:48 | UC ---
General HPI - HPI Summary HPI Summary: Here with COld/flu like s/s for the past week. Coughing began 5 days ago. Productive cough - requriing him to take albuterol every 4 hours. Wakes up sweating during the night but otherwise no fevers during the day. Taking theraflu with minimal relief. + Congestion. No SOB. No CP. No N/V/D. No rash. Meds: REviewed - History of Current Complaint Chief Complaint: UCGeneralIllness Stated Complaint: FLU LIKE SYMPTOMS Time Seen by Provider: 06/28/18 07:36 Pain Intensity: 7 - Allergy/Home Medications Allergies/Adverse Reactions: Allergies Allergy/AdvReac Type Severity Reaction Status Date / Time No Known Allergies Allergy Verified 06/28/18 07:18 Home Medications: Home Medications Fluticasone-Salmeterol 250-50* [Advair Diskus 250-50*] 1 puff INH DAILY WITH MEAL 06/28/18 [History Confirmed 06/28/18] PMH/Surg Hx/FS Hx/Imm Hx Previously Healthy: Yes Cardiovascular History: Hypertension Respiratory History: Asthma Neurological History: CVA Other History Of: Anticoagulant Therapy - Aspirin. Negative For: HIV, Hepatitis B, Hepatitis C - Surgical History Surgical History: Yes Surgery Procedure, Year, and Place: ORIF right ankle. [place]; left knee cartilage removed - Family History Known Family History: Positive: Cardiac Disease, Hypertension, Other - CVA - mom dec copd issues - dad dec Negative: Diabetes Family History: Mother: hemorrhagic CVA - Social History Alcohol Use: Occasionally Substance Use Type: None Substance Use Comment - Amount & Last Used: xanax prn and ativan prn Smoking Status (MU): Former Smoker - Immunization History Most Recent Influenza Vaccination: 2016 Most Recent Tetanus Shot: 08/30/15 Review of Systems All Other Systems Reviewed And Are Negative: Yes Constitutional: Positive: Negative ENT: Positive: Sore Throat, Sinus Congestion Respiratory: Positive: Cough Physical Exam Triage Information Reviewed: Yes Appearance: Well-Appearing Vital Signs: Initial Vital Signs Temp 98.2 F 06/28/18 07:10 Pulse 68 06/28/18 07:10 Resp 18 06/28/18 07:10 BP 135/85 06/28/18 07:10 Pulse Ox 99 06/28/18 07:10 Vital Signs Reviewed: Yes ENT: Positive: Pharyngeal erythema, Nasal congestion, TM red - left TM: erythematous, nonbulging. Right TM: dull Neck: Positive: Supple, Nontender Respiratory: Positive: No respiratory distress, No accessory muscle use, Other: - faint expiratory wheezing on anterior chest. No rales or rhonchi. No increase in wob Cardiovascular: Positive: RRR, No Murmur Course/Dx - Course Course Of Treatment: This is a 53 yr old with a PMHx of asthma who presents with cough and congestion Assessment Flu: Negative NO respiratory distress Plan Start Medrol dose pack as directed Continue inhalers as directed. REcommend using chamber/spacer with albuterol inhaler TEssalon pearls as needed for cough If symptoms worsen or continue, call your primary for further evaluation or return to urgent care or go to the ER - Diagnoses Provider Diagnosis: Asthma exacerbation, Viral syndrome Discharge - Sign-Out/Discharge Documenting (check all that apply): Patient Departure All imaging exams completed and their final reports reviewed: No Studies - Discharge Plan Condition: Good Disposition: HOME Prescriptions: Benzonatate CAP* [Tessalon 100 MG CAP*] 200 mg PO TID PRN #60 cap PRN Reason: Cough methylPREDNISolone [Medrol] 4 mg PO .SEE JOHANNY INSTRUCTION #1 tab.ds.pk Spacer/Holding Chamber (NF) [Easivent CHAMBER (NF)] 1 applic INH Q4HR PRN #1 device PRN Reason: Cough Patient Education Materials: Asthma (ED), Viral Syndrome (ED) Referrals: Jared Rabago MD [Primary Care Provider] - Additional Instructions: Start Medrol dose pack as directed Continue inhalers as directed. REcommend using chamber/spacer with albuterol inhaler TEssalon pearls as needed for cough If symptoms worsen or continue, call your primary for further evaluation or return to urgent care or go to the ER - Billing Disposition and Condition Condition: GOOD Disposition: Home
[2018-06-28 08:02] LABS: Influenza A Molecular NEGATIVE (Negative); Influenza B Molecular NEGATIVE (Negative)
== END 2018-06-28 08:20 | disposition home or self-care (01) ==
LOC: UCEAST 07:00
DX: J45.901 Unspecified asthma with (acute) exacerbation (principal); B34.9 Viral infection, unspecified; I10 Essential (primary) hypertension; Z86.73 Personal history of transient ischemic attack (TIA), and cerebral infarction without residual deficits; Z79.82 Long term (current) use of aspirin; Z87.891 Personal history of nicotine dependence
CPT/HCPCS: 99212; G0463

== ENCOUNTER 2019-05-02 07:03 | Emergency (ER) | payer BC ==
--- OUTSIDE RECORDS SUMMARY | 2019-05-02 07:09 | XMS REPORT | Continuity of Care Document ---
:1965 External Reference #:[id number] Author Name INDIO Hernandez Address [address] [place] [address] Care Team Providers Name Role Phone Jared Rabago - Family Medicine Care Team Information Motor Grader Operator [phone] Isabel Henderson - Family Medicine Care Team Information Motor Grader Operator [facility] - Sleep Disorder Care Team Information Motor Grader Operator [phone] Diagnostic Problems Active Problems Provider Date Allergic asthma without status asthmaticus Jared Rabago M.D. Onset: 2006 Allergic rhinitis Jared Rabago M.D. Onset: 02/07/2007 Exacerbation of asthma Jared Rabago M.D. Onset: 08/21/2008 Benign essential hypertension Jared Rabago M.D. Onset: 08/21/2008 Hyperlipidemia Jared Rabago M.D. Onset: 10/09/2008 Benign prostatic hypertrophy without Jared Rabago M.D. Onset: 10/09/2008 outflow obstruction Acute sinusitis Jared Rabago M.D. Onset: 02/02/2011 Anxiety state Jared Rabago M.D. Onset: 12/22/2011 Contact dermatitis Jarde Rabago M.D. Onset: 12/22/2011 Low back pain Jared Rabago M.D. Onset: 03/07/2012 Backache Jared Rabago M.D. Onset: 03/07/2012 Dissection of vertebral artery Jared Rabago M.D. Onset: 05/29/2013 Acute ill-defined cerebrovascular disease Jared Rabago M.D. Onset: 2013 Disturbance in sleep behavior Jared Rabago M.D. Onset: 09/04/2013 Osteochondropathy Kade Velez M.D. Onset: 10/30/2014 Essential hypertension Jared Rabago M.D. Onset: 12/17/2014 Obstructive sleep apnea syndrome Jared Rabago M.D. Onset: 12/17/2014 Shoulder joint pain Jared Rabago M.D. Onset: 07/30/2015 Mild intermittent asthma Jared Rabago M.D. Onset: 09/10/2017 Other hyperlipidemia Jared Rabago M.D. Onset: 02/15/2018 Exacerbation of intermittent asthma Jared Rabago M.D. Onset: 06/30/2018 Social History Type Date Description Comments Sex Unknown Tobacco Use Start: Unknown Nonsmoker ETOH Use Occasional Tobacco Use Start: Unknown Patient has never smoked Smoking Status Reviewed: 11/01/18 Patient has never smoked Allergies, Adverse Reactions, Alerts Description No Known Drug Allergies Medications Active Medications SIG Qnty Indications Ordering Provider Date Doxycycline Hyclate take one capsule 20caps Sue Cabrera, 04/25/2019 by mouth twice a AIRLINE LOUNGE RECEPTIONIST 100mg Capsules day Azithromycin take 2 tablets 6tabs J06.9 Manisha Yu [facility] 04/21/2019 250mg by mouth today Tablets then take 1 tablet daily for next 4 days Prednisone 1 twice a day x 10tabs J06.9 Manisha Yu, [facility] 04/21/2019 20mg Tablets 5d Valacyclovir HCL 2 by mouth at 4tabs B00.1 Emilia Reardon, 02/01/2019 1gm first sign of DELIVERY MAN Tablets cold sore, repeat dose in 12 hours Lisinopril Take One Tablet 30tabs I10 Jared Rabago, 02/05/2017 5mg Tablets By Mouth Every M.D. Day Montelukast Sodium Take One Tablet 30tabs J45.998 Jared Rabago, 2016 10mg By Mouth AT M.D. Tablets Bedtime R05 Proair HFA Inhale Two Puffs 8.5units J45.20 Manisha Yu [facility] 06/06/2013 108(90Base) By Mouth Every 4 mcg/Act Aerosol Hours as Needed R05 J45.998 Atorvastatin Calcium Take One Tablet By 30tabs E78.4 Jared Rabago, 05/29 80mg Mouth AT Bedtime M.D. Tablets Advair Diskus Inhale Two Puffs 60units J45.998 Manisha Yu, [employer] LOUNGE RECEPTIONIST 2009 By Mouth Every Day 250-50mcg/Dose Aerosol R05 History Medications Prednisone take one by 5tabs J45.901 Emilia Reardon, 02/01/2019 - 50mg mouth daily DELIVERY MAN 02/10/2019 Tablets for 5 days Medications Administered in Office Medication SIG Qnty Indications Ordering Provider Date Injection Subcutaneous Or Malcom Allison M.D. 09/07/2000 Intramuscular Injection Immunizations CPT Code Status Date Vaccine Lot # [id number] Given 11/26/2017 Influenza Vac, Quadrivalent, [place] [id number] Given 11/26/2016 Influenza Vac, Quadriv[place], [place] [address] Given 12/17/2014 Tdap Tetanus, W Pertussis [id number] Given 01/04/2007 DO Not Use Split Influenza Virus Vaccine [id number] Given 01/28/2004 Influenza Virus Vaccine, Live For Intranasla Use Vital Signs Date Vital Result Comment 04/25/2019 4:18pm BP Systolic 120 mmHg BP Diastolic 78 mmHg Heart Rate 86 /min Body Temperature 96.3 F Respiratory Rate 15 /min O2 % BldC Oximetry 97 % Ra Weight 179.00 lb 04/21/2019 1:33pm BP Systolic 120 mmHg BP Diastolic 60 mmHg Heart Rate 68 /min Body Temperature 97.0 F Respiratory Rate 20 /min Weight 178.50 lb shoes on Results Test Acquired Date Facility Test Result H/L Range Note Comprehensive 02/10/2019 [facility]) Sodium 135 mEq/L 134-149 Metabolic Prof Potassium 4.0 mEq/L 3.6-5.5 Chloride 102 mEq/L 94-112 Carbon Dioxide 25 mEq/L 21-32 Glucose 92 mg/dL 70-105 BUN 22 mg/dL 6-26 Creatinine 0.9 mg/dL 0.6-1.4 BUN/Creat Ratio 24.4 CALC 8.0-36.0 Calcium 10.0 mg/dL 8.6-10.2 Total Protein 6.9 g/dL 6.4-8.3 Albumin 4.8 g/dL 3.8-5.5 Globulin 2.1 g/dL 2.0-4.8 A/G Ratio 2.3 CALC 0.6-2.3 Alk. Phosphatase 61 U/L 22-95 Alt (SGPT) 28 U/L 7-35 Ast (Sgot) 20 U/L 5-34 Total Bilirubin 0.4 mg/dL 0.2-1.3 GFR Non- >60 ml/min/1.73m^ >=60 GFR >60 ml/min/1.73m^ >=60 Lipid Profile 02/10/2019 [facility]) Cholesterol 155 mg/dL 120- 200 Triglycerides 69 mg/dL 30-200 HDL Cholesterol 33 mg/dL 30-70 LDL (Calculated) 108 CALC 0-129 VLDL Cholesterol 14 mg/dL 0-50 HDL Risk Factor 4.7 CALC High 0.0-4.4 Procedures Date Code Description Status 04/21/2019 27393 Nebulizer Treatment Completed 02/01/2019 15269 Pulse Oximetry Completed 11/01/2018 10083 Remove Impact Cerumen Irrigati Completed 01/10/2015 73721436 Colonoscopy Completed 12/19/2008 04422002 Colonoscopy Completed Medical Devices Description No Information Available Encounters Type Date Location Provider Dx Diagnosis Office Visit 04/21/2019 Main Office INDIO Pacheco J06.9 Acute upper 1:45p respiratory infection, unspecified R05 Cough J45.20 Mild intermittent asthma, uncomplicated Office Visit 02/10/2019 9:00a Main Office Jared Rabago, I10 Essential ( primary) M.D. hypertension E78.49 Other hyperlipidemia J45.20 Mild intermittent asthma, uncomplicated I67.89 Other cerebrovascular disease Office Visit 02/01/2019 11:30a Main Office Emilia Chi J06.9 Acute upper Alexys, DELIVERY MAN respiratory infection, unspecified J45.901 Unspecified asthma with (acute) exacerbation B00.1 Herpesviral vesicular dermatitis Office Visit 11/01/2018 10:00a Main Office Hope Caruso H61.23 Impacted cerumen, Maddox, DELIVERY MAN bilateral Assessments Date Code Description Provider 04/25/2019 R05 Cough INDIO Hernandez 04/25/2019 J45.21 Mild intermittent asthma with (acute) INDIO Hernandez exacerbation 04/25/2019 R06.2 Wheezing Sue Cabrera, AIRLINE LOUNGE RECEPTIONIST 04/21/2019 J06.9 Acute upper respiratory infection, Manisha Yu, AIRLINE LOUNGE RECEPTIONIST unspecified 04/21/2019 R05 Cough Manisha Yu, [employer] LOUNGE RECEPTIONIST 04/21/2019 J45.20 Mild intermittent asthma, uncomplicated Manisha Yu, [employer] LOUNGE RECEPTIONIST 02/10/2019 I10 Essential (primary) hypertension Jared Rabago M.D. 02/10/2019 E78.49 Other hyperlipidemia Jared Rabago M.D. 02/10/2019 J45.20 Mild intermittent asthma, uncomplicated Jared Rabago M.D. 02/10/2019 I67.89 Other cerebrovascular disease Jared Rabago M.D. 02/01/2019 J06.9 Acute upper respiratory infection, Emilia Reardon, DELIVERY MAN unspecified 02/01/2019 J45.901 Unspecified asthma with (acute) Emilia Reardon, UGO exacerbation 02/01/2019 B00.1 Herpesviral vesicular dermatitis Emilia Reardon, UGO 11/01/2018 H61.23 Impacted cerumen, bilateral Hope Maddox NP Plan of Treatment Future Appointment(s):08/21/2019 10:20 am - Jared Rabago M.D. at Main Oalrwu0404/25/2019 - Sue Cabrera, [id number] RgcuxT68.21 Mild intermittent asthma with (acute) ghkkgvajfgnsZ18.2 WheezingAllNew Medication:Doxycycline Hyclate 100 mg - take one capsule by mouth twice a dayComments:Medication Management Patient Understands medications he 's taking? Yes No Are there Barriers to Adherence? Yes No Has the patient been asked about herbal supplements and therapies, andOTC meds? Yes No As always, we strongly encourage a healthy diet and making physical activity a part of your every day life. If you have questions about how or where to start, please contact the office. Functional Status Description No Information Available Mental Status Description No Information Available Referrals Description No Information Available
--- NOTE | 2019-05-02 07:14 | UC ---
General HPI - HPI Summary HPI Summary: Persistant cough x last 2 weeks. Feels like it's stuck in his chest. Minimally productive. No fever. Completed azithromycin and prednisone taper x 1 last week. Currently taking course of doxycycline. Works in an office setting. No new rash. No GI issues. No chest pain / palpitations No recent travel out of the country. Hx copd Hx cva (pica d/t vert art diss) 2013 Post Hx copd HTN Takes asa, plavix - History of Current Complaint Stated Complaint: COLD AND ASTHMA SYMPTOMS Time Seen by Provider: 05/02/19 07:10 Hx Obtained From: Patient, Family/Workflow Developer - Allergy/Home Medications Allergies/Adverse Reactions: Allergies Allergy/AdvReac Type Severity Reaction Status Date / Time No Known Allergies Allergy Verified 05/02/19 07:11 Home Medications: Home Medications Atorvastatin* [Lipitor 80 MG*] 80 mg PO BEDTIME 11/17/13 [History Confirmed 05/18] Albuterol HFA INHALER* [Ventolin HFA Inhaler*] 2 puff INH Q4H PRN 03/23/17 [ History Confirmed 05/02/19] Lisinopril TAB* [Prinivil TAB 5 MG*] 5 mg PO DAILY 03/23/17 [History Confirmed 05/02/19] Fluticasone-Salmeterol 250-50* [Advair Diskus 250-50*] 1 puff INH DAILY WITH MEAL 06/28/18 [History Confirmed 05/02/19] Albuterol 2.5MG/3ML (0.083%)* [Ventolin 2.5 MG/3 ML NEB.SHIN*] 2.5 mg INH Q6H PRN #25 vial 05/02/19 [Rx] Aspirin 81 mg CHEW TAB* [Aspirin Low Dose TAB*] 81 mg PO BEDTIME 05/02/19 [ History Confirmed 05/02/19] Benzonatate CAP* [Tessalon 100 MG CAP*] 100 mg PO TID PRN #30 cap 05/02/19 [Rx] Ciprofloxacin HCl [Cipro] 500 mg PO BID #20 tablet 05/02/19 [Rx] DOXYcycline CAP(*) [DOXYcycline 100MG CAP(*)] 100 mg PO DAILY 05/02/19 [History Confirmed 05/02/19] predniSONE 10 mg TAB [Deltasone 10 MG TAB*] 10 mg PO DAILY #20 tab 05/02/19 [Rx] PMH/Surg Hx/FS Hx/Imm Hx Previously Healthy: Yes - but seen hpi Other History Of: Anticoagulant Therapy - Aspirin. Negative For: HIV, Hepatitis B, Hepatitis C - Surgical History Surgical History: Yes Surgery Procedure, Year, and Place: ORIF right ankle. [place]; left knee cartilage removed - Family History Known Family History: Positive: Cardiac Disease, Hypertension, Other - CVA - mom dec copd issues - dad dec Negative: Diabetes Family History: Mother: hemorrhagic CVA - Social History Alcohol Use: Occasionally Substance Use Type: None Substance Use Comment - Amount & Last Used: xanax prn and ativan prn Smoking Status (MU): Former Smoker - Immunization History Most Recent Influenza Vaccination: 2016 Most Recent Tetanus Shot: 08/30/15 Review of Systems All Other Systems Reviewed And Are Negative: Yes Constitutional: Positive: Fatigue Skin: Positive: Negative Eyes: Positive: Negative ENT: Positive: Other - see hpi Respiratory: Positive: Cough Cardiovascular: Positive: Negative Gastrointestinal: Positive: Negative Genitourinary: Positive: Negative Motor: Positive: Negative Neurovascular: Positive: Negative Musculoskeletal: Positive: Negative Neurological/Mental Status: Positive: Negative Psychological: Positive: Negative Is Patient Immunocompromised?: No Physical Exam Triage Information Reviewed: Yes Appearance: Well-Nourished - sitting up, conversing easily. looks tired but nad Vital Signs Reviewed: Yes Eye Exam: Normal ENT: Positive: Pharyngeal erythema - mild post ph redness, c/w cough. no sores / exudates, Other - EAC both + cerumen impaction Neck exam: Normal Neck: Positive: Supple, Nontender, No Lymphadenopathy Respiratory Exam: Other - BS tight dec bbbs. No rtx. No distress. Cardiovascular Exam: Normal Cardiovascular: Positive: RRR, Pulses Normal, Brisk Capillary Refill Abdominal Exam: Normal Abdomen Description: Positive: Nontender Musculoskeletal Exam: Normal - moves x 4 exts Neurological Exam: Normal - grossly nonfocal Psychological Exam: Normal - nad Skin Exam: Normal - nondiaphoretic no visible or reported rash Course/Dx - Course Course Of Treatment: Reviewed coa / tx plan with Mr. Levin and his . Questions as posed answered to the best of my ability. Chest xray report reviewed with pt and spouse. See [facility] - patchy inflitrate at in (sic) the left lower lobe retrocardiac lung could be pneumonia in the correct clinical setting. Will consider obtaining a nebulizer. Will write work note. diff dx extensive. hx copd, will switch from doxycycline to ciprofloxacin ( although more likely secondary bacterial infection). Declines cerumen flush, he will check with his doctor. - Diagnoses Provider Diagnosis: Cerumen impaction, Wheezing, Pneumonia Discharge ED - Sign-Out/Discharge Documenting (check all that apply): Patient Departure All imaging exams completed and their final reports reviewed: Yes - Discharge Plan Condition: Stable Disposition: HOME Prescriptions: Albuterol 2.5MG/3ML (0.083%)* [Ventolin 2.5 MG/3 ML NEB.SHIN*] 2.5 mg INH Q6H PRN #25 vial PRN Reason: Wheezing Benzonatate CAP* [Tessalon 100 MG CAP*] 100 mg PO TID PRN #30 cap PRN Reason: Cough Patient Education Materials: Cerumen Impaction (ED), Bronchospasm (ED), Community Acquired Pneumonia (ED) Forms: *Work Release Referrals: Jared Rabago MD [Primary Care Provider] - Additional Instructions: Please follow up with your primary care physician as planned. Seek medical attention for worse or new problems in the meantime. Hydrate. Consider cerumen impaction flush (both ears) in the near future. Avoid q-tips, the impaction is too deep. Consider HEPA air filter for your office. - Billing Disposition and Condition Condition: STABLE Disposition: Home
[2019-05-02 07:23] VITALS: BP 123/78
[2019-05-02] MEDS ORDERED: Albuterol/Ipratropium NEB.SOL* Albuterol 2.5 MG/Ipratropium 0.5 MG 3 ML INH ONE (07:44)
== END 2019-05-02 08:50 | disposition home or self-care (01) ==
LOC: UCEAST 07:03
DX: J18.9 Pneumonia, unspecified organism (principal); H61.23 Impacted cerumen, bilateral; R06.2 Wheezing; I10 Essential (primary) hypertension; J44.9 Chronic obstructive pulmonary disease, unspecified; Z86.73 Personal history of transient ischemic attack (TIA), and cerebral infarction without residual deficits; Z87.891 Personal history of nicotine dependence; Z79.82 Long term (current) use of aspirin; Z79.02 Long term (current) use of antithrombotics/antiplatelets; Z79.899 Other long term (current) drug therapy
CPT/HCPCS: 71046; 99212; A9270-GY; G0463

== ENCOUNTER 2019-05-04 05:08 | Emergency (ER) | payer BC ==
--- OUTSIDE RECORDS SUMMARY | 2019-05-04 05:15 | XMS REPORT | Continuity of Care Document ---
:1965 External Reference #:[id number] Author Name INDIO Hernandez Address [address] [place] [address] Care Team Providers Name Role Phone Jared Rabago - Family Medicine Care Team Information Inclusion Paraeducator [phone] Isabel Henderson - Family Medicine Care Team Information Inclusion Paraeducator [phone] [facility] - Sleep Disorder Care Team Information Inclusion Paraeducator [phone] Diagnostic Problems Active Problems Provider Date Allergic [...] Jared Rabago M.D. Onset: 12/22/2011 Contact dermatitis Jared Rabago M.D. Onset: 12/22/2011 Low back pain [...] ETOH Use Occasional Tobacco Use Start: Unknown End: Patient is a former smoker social smoker x 2 Unknown years in early Smoking Status Reviewed: 05/02/19 Patient is a former smoker social smoker x 2 years in early Allergies, Adverse Reactions, Alerts Description No Known Drug Allergies Medications Active Medications SIG Qnty Indications Ordering Provider Date Nebulizer use up to 6 1units [facility], 05/02/2019 Device times a day prn [employer]KING WORK[employer] - Dx: j45.21 Nebulizer use up to 6 1month [facility], 05/02/2019 Kit/Tubing/Mouthpiece times a day prn [employer] WORK[employer] - Dx: j45.21 Kit Levofloxacin 1 by mouth every 10tabs Sue Deborah, 05/02/2019 500mg day for 10 days [employer] Tablets Prednisone 1 twice a day x 10tabs J06.9 Manisha Yu, [employer] 04/21/2019 20mg Tablets 5d Valacyclovir HCL 2 by mouth at 4tabs B00.1 Emilia Reardon, 02/01/2019 1gm first sign of PLUMBER Tablets cold sore, repeat dose in 12 hours Lisinopril Take One Tablet 30tabs I10 Jared Rabago, 02/05/2017 5mg Tablets By Mouth Every M.D. Day Montelukast Sodium Take One Tablet 30tabs J45.998 Jared Rabago, 2016 10mg By Mouth AT M.D. Tablets Bedtime R05 Proair HFA Inhale Two Puffs 8.5units J45.20 Manisha Yu, [facility] 06/06/2013 108(90Base) By Mouth Every 4 mcg/Act Aerosol Hours as Needed R05 J45.998 Atorvastatin Calcium Take One Tablet By 30tabs E78.4 Jared Rabago, 05/29 80mg Mouth AT Bedtime M.D. Tablets Advair Diskus Inhale Two Puffs 60units J45.998 Manisha Yu, [facility] 2009 By Mouth Every Day 250-50mcg/Dose Aerosol R05 History Medications Doxycycline Hyclate take one 20caps Sue 04/25/2019 - capsule by Deborah [facility] 05/02/2019 100mg Capsules mouth twice a day Azithromycin take 2 tablets 6tabs J06.9 Manisha Yu [facility] 04/21/2019 - 250mg by mouth today 05/02/2019 Tablets then take 1 tablet daily for next 4 days Prednisone take one by 5tabs J45.901 Emilia Chi 02/01/2019 - 50mg mouth daily for UGO Reardon 02/10/2019 Tablets 5 days Medications Administered in Office Medication SIG Qnty Indications Ordering Provider Date Injection Subcutaneous Or Malcom Allison M.D. 09/07/2000 Intramuscular Injection Immunizations CPT Code Status Date Vaccine Lot # [id number] Given 11/26/2017 Influenza Vac, Quadrivalent, [place] [id number] Given 11/26/2016 Influenza Vac, Quadriv[place], [place] [id number] Given 12/17/2014 Tdap Tetanus, W Pertussis [id number] Given 01/04/2007 DO Not Use Split Influenza Virus Vaccine [id number] Given 01/28/2004 Influenza Virus Vaccine, Live For Intranasla Use Vital Signs Date Vital Result Comment 05/02/2019 1:20pm BP Systolic 120 mmHg BP Diastolic 80 mmHg Heart Rate 77 /min Body Temperature 97.5 F Respiratory Rate 15 /min O2 % BldC Oximetry 96 % Ra Weight 182.00 lb 04/25/2019 4:18pm BP Systolic 120 mmHg BP Diastolic 78 mmHg Heart Rate 86 /min Body Temperature 96.3 F Respiratory Rate 15 /min O2 % BldC Oximetry 97 % Ra Weight 179.00 lb Results Test Acquired Date Facility Test Result H/L Range Note Comprehensive 02/10/2019 [facility]) Sodium 135 mEq/L 134-149 Metabolic Prof Potassium [...] GFR >60 ml/min/1.73m^ >=60 Lipid Profile 02/10/2019 [facility]) Cholesterol 155 mg/dL 120- 200 Triglycerides 69 mg/dL 30-200 HDL Cholesterol 33 mg/dL 30-70 LDL (Calculated) 108 CALC 0-129 VLDL Cholesterol 14 mg/dL 0-50 HDL Risk Factor 4.7 CALC High 0.0-4.4 Procedures Date Code Description Status 04/25/2019 35706 Pulse Oximetry Completed 04/21/2019 15465 Nebulizer Treatment Completed 02/01/2019 64139 Pulse Oximetry Completed 01/10/2015 94444025 Colonoscopy Completed 12/19/2008 01045421 Colonoscopy Completed Medical Devices Description No Information Available Encounters Type Date Location Provider Dx Diagnosis Office Visit 04/25/2019 4:15p Main Office INDIO Hernandez R05 Cough J45.21 Mild intermittent asthma with (acute) exacerbation R06.2 Wheezing Office Visit 04/21/2019 1:45p Main Office INDIO Pacheco J06.9 Acute upper respiratory infection, unspecified R05 Cough J45.20 Mild intermittent asthma, uncomplicated Office Visit 02/10/2019 9:00a Main Office Jared Rabago, I10 Essential ( primary) M.DDayna hypertension E78.49 Other hyperlipidemia J45.20 Mild intermittent asthma, uncomplicated I67.89 Other cerebrovascular disease Office Visit 02/01/2019 11:30a Main Office Emilia Chi J06.9 Acute upper Alexys, PLUMBER respiratory infection, unspecified J45.901 Unspecified asthma with (acute) exacerbation B00.1 Herpesviral vesicular dermatitis Assessments Date Code Description Provider 05/02/2019 J45.21 Mild intermittent asthma with (acute) Sue Deborah, MILKING WORKER exacerbation 05/02/2019 R06.02 Shortness of breath Sue Deborah, MILKING WORKER 05/02/2019 R06.00 Dyspnea, unspecified Sue Deborah, MIL[employer] WORKER 05/02/2019 R53.83 Other fatigue Sue Deborah, MILKING WORKER 05/02/2019 J06.9 Acute upper respiratory infection, Sue Deborah, MILKING WORKER unspecified 04/25/2019 R05 Cough Sue Deborah, MILKING WORKER 04/25/2019 J45.21 Mild intermittent asthma with (acute) Sue Deborah, MILKING WORKER exacerbation 04/25/2019 R06.2 Wheezing Sue Deborah, MILKING WORKER 04/21/2019 J06.9 Acute upper respiratory infection, Manisha Gigi, MILKING WORKER unspecified 04/21/2019 R05 Cough Manisha Gigi, MILKING WORKER 04/21/2019 J45.20 Mild intermittent asthma, uncomplicated Manisha Gigi, MILKING WORKER 02/10/2019 I10 Essential (primary) hypertension Jared Rabago M.D. 02/10/2019 E78.49 Other hyperlipidemia Jared Rabago M.D. 02/10/2019 J45.20 Mild intermittent asthma, uncomplicated Jared Rabago M.D. 02/10/2019 I67.89 Other cerebrovascular disease Jared Rabago M.D. 02/01/2019 J06.9 Acute upper respiratory infection, Emilia Reardon, PLUMBER unspecified 02/01/2019 J45.901 Unspecified asthma with (acute) Emilia C. Alexys, PLUMBER exacerbation 02/01/2019 B00.1 Herpesviral vesicular dermatitis Emilia Reardon NP Plan of Treatment Future Appointment(s):05/05/2019 11:00 am - INDIO Hernandez at Main Ckocpa9508/21/2019 10:20 am - Jared Rbaago M.D. at Main Fwsqvk8405/02/2019 - Sue Cabrera, INDIOJ45.21 Mild intermittent asthma with (acute) fmuhoehkrwpkW77.02 Shortness of odbmblV27.00 Dyspnea, owclsiiookhT62.83 Other anlevrtQ94.9 Acute upper respiratory infection, unspecifiedAllNew Medication: Nebulizer - use up to 6 times a day prn - Dx: j45.21Nebulizer Kit/Tubing/ Mouthpiece - use up to 6 times a day prn - Dx: j45.21Levofloxacin 500 mg - 1 by mouth every day for 10 daysComments:Medication Management Patient Understands medications he 's taking? [...] Mental Status Description No Information Available Referrals Refer to Reason for Referral Status Appt Date [facility] [place] nebulizer set up and tubing Created [address] [place] [address] [phone]
[2019-05-04 06:42] LABS: ABS Lymphocytes 1.6 10^3/ul (1.0-4.8); ABS Monocytes 0.5 10^3/ul (0-0.8); ABS Neutrophils 4.8 10^3/ul (1.5-7.7); Eosinophil % 0.5 %; Hematocrit 37 % (42-52); Hemoglobin 12.9 g/dL (14.0-18.0); Lymphocyte % 22.9 %; Mean Corpuscular HGB Conc 35 g/dL (31-36); Mean Corpuscular Hemoglobin 31 pg (27-31); Mean Corpuscular Volume 90 fL (80-94); Mean Platelet Volume 8.8 fL (7.4-10.4); Platelet Count 144 10^3/uL (150-450); Red Blood Count 4.16 10^6 /uL (4.18-5.48); Red Cell Distribution Width 13 % (10-15); White Blood Count 6.9 10^3/uL (3.5-10.8)
[2019-05-04 06:58] LABS: ALT 27 U/L (7-52); AST 18 U/L (13-39); Albumin 3.8 g/dL (3.2-5.2); Albumin/Globulin Ratio 1.9 (1-3); Alkaline Phosphatase 48 U/L (34-104); Anion Gap 4 mmol/L (2-11); BUN/Creatinine Ratio 15.3 (8-20); Blood Urea Nitrogen 13 mg/dL (6-24); C Reactive Protein < 1.00 mg/L (<8.01); CO2 Carbon Dioxide 29 mmol/L (22-32); Chloride 107 mmol/L (101-111); EGFR African American 113.7 (>60); EGFR Non-African American 93.9 (>60); Glucose 88 mg/dL (70-100); Potassium 4.1 mmol/L (3.5-5.0); Sodium 140 mmol/L (135-145); Total Protein 5.8 g/dL (6.4-8.9)
--- NOTE | 2019-05-04 07:21 | ED ---
Shortness of Breath - HPI Summary HPI Summary: Patient is a 53-year-old male who presents emergency department for ongoing cough and shortness of breath 2 weeks. Past medical history of asthma, CVA. Patient states he is his family doctor twice and was seen at the [facility] a few days ago. He notes he has been on 2 courses of prednisone as well as azithromycin, doxycycline and currently on Levaquin. Patient states today he woke up and felt very short of breath and presented to the ED. Patient been using nebulizer since yesterday and rescue inhalers. Patient notes one hospitalization with intubation for asthma attack remotely. Patient otherwise denies chest pain, abdominal pain, vomiting, leg swelling, rash. He does note he suffered plane from [place] a few weeks ago. Symptoms are moderate in severity. No current modifying factors. Former smoker. - History of Current Complaint Chief Complaint: EDShortnessOfBreath Time Seen by Provider: 05/04/19 05:44 Hx Obtained From: Patient - Allergy/Home Medications Allergies/Adverse Reactions: Allergies Allergy/AdvReac Type Severity Reaction Status Date / Time No Known Allergies Allergy Verified 05/04/19 05:28 Home Medications: Home Medications Atorvastatin* [Lipitor 80 MG*] 80 mg PO BEDTIME 11/17/13 [History Confirmed 07/18] Albuterol HFA INHALER* [Ventolin HFA Inhaler*] 2 puff INH Q4H PRN 03/23/17 [ History Confirmed 05/04/19] Lisinopril TAB* [Prinivil TAB 5 MG*] 5 mg PO DAILY 03/23/17 [History Confirmed 05/04/19] Fluticasone-Salmeterol 250-50* [Advair Diskus 250-50*] 1 puff INH DAILY WITH MEAL 06/28/18 [History Confirmed 05/04/19] Albuterol 2.5MG/3ML (0.083%)* [Ventolin 2.5 MG/3 ML NEB.SHIN*] 2.5 mg INH Q6H PRN #25 vial 05/02/19 [Rx Confirmed 05/04/19] Aspirin 81 mg CHEW TAB* [Aspirin Low Dose TAB*] 81 mg PO BEDTIME 05/02/19 [ History Confirmed 05/04/19] predniSONE 10 mg TAB [Deltasone 10 MG TAB*] 10 mg PO DAILY #20 tab 05/02/19 [Rx Confirmed 05/04/19] Levofloxacin TAB* 500 mg PO DAILY 05/04/19 [History Confirmed 05/04/19] PMH/Surg Hx/FS Hx/Imm Hx Previously Healthy: Yes Endocrine/Hematology History: Reports: Hx Anticoagulant Therapy - Aspirin. Denies: Hx Diabetes, Hx Thyroid Disease Cardiovascular History: Reports: Hx Hypertension Denies: Hx Congestive Heart Failure, Hx Deep Vein Thrombosis, Hx Myocardial Infarction, Hx Pacemaker/ICD, Other Cardiovascular Problems/Disorders Respiratory History: Reports: Hx Asthma - severe, was intubated 18 yrs ago Denies: Hx Chronic Obstructive Pulmonary Disease (COPD), Hx Lung Cancer, Hx Pneumonia, Hx Pulmonary Embolism, Other Respiratory Problems/Disorders GI History: Denies: Hx Gall Bladder Disease, Hx Gastrointestinal Bleed, Hx Ulcer, Hx Urosepsis History: Denies: Hx Kidney Stones, Hx Renal Disease Sensory History: Reports: Hx Contacts or Glasses Denies: Hx Hearing Aid Opthamlomology History: Reports: Hx Contacts or Glasses Neurological History: Denies: Hx Dementia, Hx Migraine, Hx Seizures, Hx Transient Ischemic Attacks (TIA) Psychiatric History: Denies: Hx Anxiety, Hx Depression, Hx Panic Disorder, Hx Schizophrenia, Hx Bipolar Disorder - Surgical History Surgery Procedure, Year, and Place: ORIF right ankle. [place]; left knee cartilage removed - Immunization History Date of Influenza Vaccine: Fall 2018 Infectious Disease History: No Infectious Disease History: Denies: Hx Clostridium Difficile, Hx Hepatitis, Hx Human Immunodeficiency Virus (HIV), Hx of Known/Suspected MRSA, Hx Shingles, Hx Tuberculosis, Hx Known/ Suspected VRE, Hx Known/Suspected VRSA, History Other Infectious Disease, Traveled Outside the [place] in Last 30 Days - Family History Known Family History: Positive: Cardiac Disease, Hypertension, Other - CVA - mom dec copd issues - dad dec Negative: Diabetes Family History: Mother: hemorrhagic CVA - Social History Occupation: Employed Full-time Lives: With Family Alcohol Use: Occasionally Substance Use Type: Reports: None Substance Use Comment - Amount & Last Used: xanax prn and ativan prn Hx Tobacco Use: No Smoking Status (MU): Former Smoker Length of Time of Smoking/Using Tobacco: 2-3 yrs Review of Systems Constitutional: Negative Negative: Fever ENT: Negative Cardiovascular: Negative Negative: Palpitations, Chest Pain Positive: Shortness Of Breath, Cough Gastrointestinal: Negative Musculoskeletal: Negative Skin: Negative Neurological/Mental Status: Negative All Other Systems Reviewed And Are Negative: Yes Physical Exam Triage Information Reviewed: Yes Vital Signs On Initial Exam: Initial Vitals Temp Pulse Resp BP Pulse Ox 96.6 F 76 20 156/100 100 05/04/19 05:11 05/04/19 05:11 05/04/19 05:11 05/04/19 05:11 05/04/19 05:11 Vital Signs Reviewed: Yes Appearance: Positive: Well-Appearing - Pt. sitting up in bed in NAD. Breathing easily on RA. present. Skin: Positive: Warm, Dry Head/Face: Positive: Normal Head/Face Inspection Eyes: Positive: Normal, EOMI Neck: Positive: Supple Respiratory/Lung Sounds: Positive: Clear to Auscultation, Breath Sounds Present. Negative: Rales, Rhonchi, Wheezes Cardiovascular: Positive: Normal, RRR. Negative: Murmur Musculoskeletal: Positive: Normal, Strength/ROM Intact Neurological: Positive: Normal, CN Intact II-III Psychiatric: Positive: Affect/Mood Appropriate Procedures - Sedation Patient Received Moderate/Deep Sedation with Procedure: No Diagnostics - Vital Signs Vital Signs Temp Pulse Resp BP Pulse Ox 05/04/19 06:27 70 127/81 97 05/04/19 06:00 63 99 05/04/19 05:57 67 127/82 97 05/04/19 05:27 70 135/99 99 05/04/19 05:20 61 99 05/04/19 05:11 96.6 F 76 20 156/100 100 - Laboratory Lab Results: Lab Results 05/04/19 05/04/19 05/04/19 Range/Units 06:28 06:28 06:28 WBC 6.9 (3.5-10.8) 10^3/uL RBC 4.16 L (4.18-5.48) 10^6 /uL Hgb 12.9 L (14.0-18.0) g/dL Hct 37 L (42-52) % MCV 90 (80-94) fL MCH 31 (27-31) pg MCHC 35 (31-36) g/dL RDW 13 (10-15) % Plt Count 144 L (150-450) 10^3/uL MPV 8.8 (7.4-10.4) fL Neut % (Auto) 69.2 % Lymph % (Auto) 22.9 % Foard % (Auto) 6.9 % Eos % (Auto) 0.5 % Baso % (Auto) 0.5 % Absolute Neuts (auto) 4.8 (1.5-7.7) 10^3/ul Absolute Lymphs (auto) 1.6 (1.0-4.8) 10^3/ul Absolute Monos (auto) 0.5 (0-0.8) 10^3/ul Absolute Eos (auto) 0.0 (0-0.6) 10^3/ul Absolute Basos (auto) 0.0 (0-0.2) 10^3/ul Absolute Nucleated RBC 0.0 10^3/ul Nucleated RBC % 0.0 D-Dimer, Quantitative < 200 (Less Than 230) ng/mL Sodium 140 (135-145) mmol/L Potassium 4.1 (3.5-5.0) mmol/L Chloride 107 (101-111) mmol/L Carbon Dioxide 29 (22-32) mmol/L Anion Gap 4 (2-11) mmol/L BUN 13 (6-24) mg/dL Creatinine 0.85 (0.67-1.17) mg/dL Est GFR ( Amer) 113.7 (>60) Est GFR (Non-Af Amer) 93.9 (>60) BUN/Creatinine Ratio 15.3 (8-20) Glucose 88 (70-100) mg/dL Calcium 9.0 (8.6-10.3) mg/dL Total Bilirubin 0.40 (0.2-1.0) mg/dL AST 18 (13-39) U/L ALT 27 (7-52) U/L Alkaline Phosphatase 48 (34-104) U/L Troponin I 0.00 (<0.03) ng/mL C-Reactive Protein < 1.00 (<8.01) mg/L Total Protein 5.8 L (6.4-8.9) g/dL Albumin 3.8 (3.2-5.2) g/dL Globulin 2.0 (2-4) g/dL Albumin/Globulin Ratio 1.9 (1-3) Result Diagrams: 05/04/19 06:28 05/04/19 06:28 Lab Statement: Any lab studies that have been ordered have been reviewed, and results considered in the medical decision making process. Course/Dx - Course Course Of Treatment: Patient presenting with ongoing cough and shortness of breath. He is afebrile well-appearing in the ER. No signs respiratory distress. Oxygen saturation high 90s on room air. We'll obtain labs, EKG chest x-ray. Family requesting flu swab. ECG done at 0705 shows a sinus bradycardia of 59bpm, normal axis, normal axis, no STEMI, similar to prior tracing. Labs are unremarkable other than mildly low platelets and out anemia. CXR negative for acute findings per radiology. Neg. flu. Negative ddimer. Based on Wells criteria PE highly unlikely. Pt. ambulated on RA with pulse ox and O2 remained 97% and sinus rhythm. Case discussed with Dr. Monk and agrees with dc home. Pt. can continue home medications. Close fu wiht pcp and return to er if sxs change or worsen. Pt. understands and agrees with plan. - Diagnoses Differential Diagnosis/HQI/PQRI: Positive: Asthma, Bronchitis, Chest Wall Pain, COPD Exacerbation, [place], Pneumonia, Pulmonary Embolism Provider Diagnoses: Cough, Shortness of breath Discharge ED - Sign-Out/Discharge Documenting (check all that apply): Patient Departure - Discharge Plan Condition: Improved Disposition: HOME Patient Education Materials: Shortness of Breath (ED) Referrals: Jared Rabago MD [Primary Care Provider] - Additional Instructions: Schedule follow up appointment with PCP Wednesday or Wednesday for recheck Can continue home medications as directed Return to ER if symptoms change or worsen - Billing Disposition and Condition Condition: IMPROVED Disposition: Home - Attestation Statements Provider Attestation: pt seen by midlevel provider independently, but I was available for consultation. I did not form a physician-patient relationship with the patient but I do agree with the documentation and diagnosis as they have documented.
[2019-05-04 08:09] LABS: Influenza A Molecular Negative (Negative); Influenza B Molecular Negative (Negative)
[2019-05-04 08:23] VITALS: BP 133/85
== END 2019-05-04 08:21 | disposition home or self-care (01) ==
LOC: ED 05:08
DX: R05 Cough (principal); R06.02 Shortness of breath; I10 Essential (primary) hypertension; J45.909 Unspecified asthma, uncomplicated; Z79.82 Long term (current) use of aspirin; Z79.899 Other long term (current) drug therapy; Z79.51 Long term (current) use of inhaled steroids; Z87.891 Personal history of nicotine dependence; R00.1 Bradycardia, unspecified
CPT/HCPCS: 36415; 71045; 80053; 84484; 85025; 85379; 86140; 93005; 99283